=== PATIENT | female | born 1945 | race Caucasian/White ===

== ENCOUNTER 2018-05-29 13:59 | Emergency (ER) | payer MEDICARE ==
[~2018-05-29] VITALS: Wt 70.0 kg
[2018-05-29] MEDS ORDERED: SOD CHLORIDE 0.9% 500 ML IV STA (15:59)
[2018-05-29] MEDS ORDERED: AMLO5TAB4 PO (16:41)
[2018-05-29] MEDS ORDERED: MECL-77 PO (16:41)
[2018-05-29] MEDS ORDERED: OLME1TAB27 PO (16:41)
[2018-05-29] MEDS ORDERED: CITA10TA5 PO (16:42)
[2018-05-29] MEDS ORDERED: DEXL60CA2 PO (16:42)
[2018-05-29] MEDS ORDERED: METF500T24 PO (16:42)
[2018-05-29] MEDS ORDERED: PROP20TA4 PO (16:43)
[2018-05-29] MEDS ORDERED: TRIA15CR55 TOP (16:43)
[2018-05-29] MEDS ORDERED: HALO50CR TOP (16:44)
--- NOTE | 2018-05-29 18:46 | ERD ---
ER Documentation Chief Complaint Chief Complaint FEELS DIZZY, SHE THINKS IS GOING TO PASS OUT X 1 WEEK HPI 73-year-old female presenting with complaints of lightheadedness intermittently over the past 1 week.She denies any associated symptoms such as headache, focal weakness or numbness, vision disturbance, chest pain, shortness of breath, fever or chills. No recent illnesses. No dysuria. It seems that these episodes are not provoked by anything specifically, but they are worsened with standing up or changing positions. She did have a syncopal episode about 1 week ago but denies any head trauma. ROS All systems reviewed and are negative except as per history of present illness. Medications Home Meds Reported Medications Halobetasol Propionate* (Ultravate* Cream) 0.05% - 50 Gm Cream.gm., 1 APPLIC TOP BID, TUB 05/29/18 Triamcinolone Acetonide* (Kenalog*) 0.1%-15GM Cr, 1 APPLIC TOP BID, #1 TUB 05/29/18 Propranolol Hcl* (Propranolol Hcl*) 20 Mg Tablet, 20 MG PO BID, TAB 05/29/18 Citalopram Hydrobromide* (Citalopram Hydrobromide*) 10 Mg Tablet, 10 MG PO DAILY, #30 TAB 05/29/18 Metformin Hcl* (Metformin Hcl*) 500 Mg Tablet, 500 MG PO WITH BREAKFAST DINNE, #60 TAB 05/29/18 Dexlansoprazole (Dexilant) 60 Mg Alex., 60 MG PO DAILY, #30 CAP 05/29/18 Amlodipine Besylate* (Norvasc*) 5 Mg Tablet, 5 MG PO DAILY, TAB 05/29/18 Meclizine Hcl* (Meclizine Hcl*) 25 Mg Tablet, 25 MG PO NEEDED PRN for DIZZINESS, TAB 05/29/18 Olmesartan/Hydrochlorothiazide (Benicar Hct 40-25 mg Tablet) 1 Each Tablet, 1 EACH PO DAILY, TAB 05/29/18 Allergies Allergies: Coded Allergies: No Known Allergy (Unverified , 05/29/18) PMhx/Soc Medical and Surgical Hx: pt denies Surgical Hx Anesthesia Reaction: No Hx Neurological Disorder: No Hx Respiratory Disorders: No Hx Cardiac Disorders: Yes (HTN) Hx Psychiatric Problems: Yes (ANXIETY/DEPRESSION) Hx Alcohol Use: No Hx Substance Use: No Hx Tobacco Use: No Smoking Status: Never smoker FmHx Family History: No diabetes Physical Exam Vitals Vital Signs Date Temp Pulse Resp B/P (MAP) Pulse Ox O2 O2 Flow FiO2 Time Delivery Rate 05/29/18 98.1 90 18 122/74 97 Room Air 19:04 (90) 05/29/18 98.1 80 18 124/74 99 Room Air 18:00 (91) 05/29/18 98.1 94 18 145/72 99 14:03 (96) Physical Exam const: No acute distress Head: Atraumatic Eyes: Normal Conjunctiva, PERRLA, EOMI, no nystagmus ENT: Normal External Ears, Nose and Mouth. Neck: Full range of motion. No meningismus. Resp: Clear to auscultation bilaterally Cardio: Regular rate and rhythm, no murmurs. 2+ distal pulses in all 4 extremities Abd: Soft, non tender, non distended. Normal bowel sounds Skin: No petechiae or rashes Back: No midline or flank tenderness Ext: No cyanosis, or edema Neur: Awake and alert, oriented x3, cranial nerves intact, strength and sensations intact in all 4 extremities. Normal gait. Normal cerebellar exam. Normal balance. Psych: Normal Mood and Affect Result Diagram: 05/29/18 1610 05/29/18 1610 Results 24 hrs Laboratory Tests Test 05/29/18 16:10 05/29/18 16:24 White Blood Count 9.3 10^3/ul Red Blood Count 4.29 10^6/ul Hemoglobin 13.2 g/dl Hematocrit 38.9 % Mean Corpuscular Volume 90.7 fl Mean Corpuscular Hemoglobin 30.8 pg Mean Corpuscular Hemoglobin Concent 33.9 g/dl Red Cell Distribution Width 11.8 % Platelet Count 270 10^3/UL Mean Platelet Volume 10.1 fl Immature Granulocytes % 0.200 % Neutrophils % 63.3 % Lymphocytes % 29.8 % Monocytes % 5.3 % Eosinophils % 0.8 % Basophils % 0.6 % Nucleated Red Blood Cells % 0.0 /100WBC Immature Granulocytes # 0.020 10^3/ul Neutrophils # 5.9 10^3/ul Lymphocytes # 2.8 10^3/ul Monocytes # 0.5 10^3/ul Eosinophils # 0.1 10^3/ul Basophils # 0.1 10^3/ul Nucleated Red Blood Cells # 0.0 10^3/ul Sodium Level 135 mmol/L Potassium Level 3.9 mmol/L Chloride Level 98 mmol/L Carbon Dioxide Level 26 mmol/L Anion Gap 11 Blood Urea Nitrogen 26 mg/dl Creatinine 1.02 mg/dl Est Glomerular Filtrat Rate mL/min mL/min Glucose Level 218 mg/dl Calcium Level 9.7 mg/dl Troponin I < 0.012 ng/ml Urine Color STRAW Urine Clarity CLEAR Urine pH 5.0 Urine Specific [place] 1.012 Urine Ketones NEGATIVE mg/dL Urine Nitrite NEGATIVE mg/dL Urine Bilirubin NEGATIVE mg/dL Urine Urobilinogen NEGATIVE mg/dL Urine Leukocyte Esterase TRACE [place]/ul Urine Microscopic RBC 0 /HPF Urine Microscopic WBC 6 /HPF Urine Bacteria FEW /HPF Urine Hemoglobin 1+ mg/dL Urine Glucose 2+ mg/dL Urine Total Protein NEGATIVE mg/dl Current Medications Medications Dose Sig/Aline Start Time Status Last (Trade) Ordered Route PRN Stop Time Admin Dose Reason Admin Sodium 500 ml @ Q1H STAT 05/29/18 DC 05/29/18 Chloride 500 mls/hr IV 15:59 16:25 05/29/18 16:58 Procedures/MDM EMERGENT LABS AND DIAGNOSTIC STUDIES: Lab Results above were reviewed and interpreted by me. CBC: no anemia or evidence of infection BMP: Hyperglycemic without evidence of acidosis. Mild BUN elevation, likely secondary to dehydration. No significant electrolyte abnormalities Lipase: no evidence of pancreatitis Troponin within normal limits, not indicative of cardiac ischemia UA: no evidence of infection 12-lead EKG was interpreted by Lowell Friedman MD: Sinus rhythm with first-degree AV block at 83 bpm Left bundle branch block No acute ST or T wave changes suggestive of acute ischemia or STEMI. Radiology Results as interpreted by Radiology below were reviewed by Kasey Friedman MD: Chest x-ray does not show any acute abnormalities CT head shows evidence of an age-indeterminate right basal ganglia infarct versus ischemia. No other acute changes noted Initial Nursing notes reviewed. Previous Medical Records requested via the Electronic Health Record. EMERGENCY DEPARTMENT COURSE / MEDICAL DECISION MAKING: Patient is presenting with 1 week of intermittent lightheadedness with history of syncope about 1 week ago. She has no associated symptoms. Her labs are only notable for elevated BUN, likely secondary to dehydration, and uncontrolled d iabetes without evidence of ketoacidosis. CT head did show evidence of an age- indeterminate right basal ganglia infarct but the patient is neurovascularly intact on exam and has not noticed any left-sided weakness. I do not believe this is the cause of her dizziness. I did recommend admission for observation on telemetry monitoring as the patient may have a paroxysmal arrhythmia. Lower suspicion for ACS or pulmonary embolism. Patient initially agreed to admission but later decided that she wanted to go home. She is aware of the findings on her CT scan. She still wants to go home without further workup. I signed the patient out AMA. I encouraged her to return for any worsening symptoms. Follow-up with PCP was recommended as soon as possible within the next 2 days. Departure Diagnosis: Primary Impression: Dizziness Additional Impressions: Abnormal CT scan, head Basal ganglia infarction Condition: Stable Patient Instructions: Possible Causes of Dizziness or Fainting, Stroke, Dizziness, Unk Cause Additional Instructions: You have decided to leave AGAINST MEDICAL ADVICE. If any of your symptoms worsen, please return to the ER immediately. I would recommend following up with your primary care doctor within the next 1-2 days so he can get further testing done. Your CT scan did show evidence of an old stroke. You will need more tests done for this as well. TEODORO FRIEDMAN MD May 29, 2018 18:46
[2018-05-29 19:04] VITALS: BP 122/74; PULSE 90; RESP 18
== END 2018-05-29 19:09 | disposition left against medical advice (07) ==
LOC: E/R 13:59
DX: I63.9 Cerebral infarction, unspecified (principal); R40.2252 Coma scale, best verbal response, oriented, at arrival to emergency department; I10 Essential (primary) hypertension; R93.0 Abnormal findings on diagnostic imaging of skull and head, not elsewhere classified; R40.2142 Coma scale, eyes open, spontaneous, at arrival to emergency department; R40.2362 Coma scale, best motor response, obeys commands, at arrival to emergency department; Z79.84 Long term (current) use of oral hypoglycemic drugs
CPT/HCPCS: 36415; 70450; 71045; 80048; 81001; 84484; 85025; 99285; J7040; 93005